=== PATIENT | male | born 1995 | race Caucasian/White ===

== ENCOUNTER 2017-07-28 02:37 | Emergency (ER) | payer SELFPAY ==
[~2017-07-28] VITALS: Ht 185.4 cm; Wt 85.0 kg
[2017-07-28 02:39] VITALS: BP 113/77; PULSE 95; RESP 16; TEMP 98.4; O2SAT 100
--- NOTE | 2017-07-28 02:43 | PD ---
HPI Chief Complaint: Pain: Acute or Chronic Time Seen by Provider: 02:42 Travel History International Travel<30 days: No Contact w/Intl Traveler<30days: No Traveled to known affect area: No History of Present Illness HPI 22-year-old male presents to emergency department by [facility] for evaluation right knee pain. Patient states that he went out evening and had been dropped off at his hotel when he was walking and he developed an acute pain in his right knee. He states he had to crawl to the pool deck at which time maintenance people became upset with him asking him to leave. He states he could not stand up so they called 911. [facility] ambulance brought the patient here to the emergency department. Patient reports 9 and 10 right knee pain, specific to the right knee with no recollection of injury. He denies any medical history. No other symptoms to report. PFSH Past Medical History Medical History: Denies Significant Hx Social History Alcohol Use: Yes Tobacco Use: Yes Substance Use: Yes Allergies-Medications (Allergen,Severity, Reaction): Coded Allergies: No Known Allergies (Unverified , 07/28/17) Reported Meds & Prescriptions Reported Meds & Active Scripts Active Ibuprofen 800 Mg Tab 800 Mg PO Q6HR PRN Review of Systems Except as stated in HPI: all other systems reviewed are Neg Physical Exam Narrative GENERAL: Well-nourished male patient, ambulatory with an antalgic gait, but in no acute distress. SKIN: Focused skin assessment warm/dry. HEAD: Atraumatic. Normocephalic. EYES: Pupils equal and round. No scleral icterus. No injection or drainage. ENT: No nasal bleeding or discharge. Mucous membranes pink and moist. NECK: Trachea midline. No JVD. CARDIOVASCULAR: Regular rate and rhythm. No murmur appreciated. RESPIRATORY: No accessory muscle use. Clear to auscultation. Breath sounds equal bilaterally. GASTROINTESTINAL: Abdomen soft, non-tender, nondistended. Hepatic and splenic margins not palpable. MUSCULOSKELETAL: No obvious deformities. No clubbing. No cyanosis. No edema. No tenderness elicited palpation over the bony structures of the right knee. Shruti's test is negative. No laxity with valgus or varus stress. No erythema or edema. Negative Homans. Distal pulses are palpable. Cap refills within normal limits. NEUROLOGICAL: Awake and alert. No obvious cranial nerve deficits. Motor grossly within normal limits. Normal speech. Data Data Last Documented VS Vital Signs Date Time Temp Pulse Resp B/P (MAP) Pulse Ox O2 Delivery O2 Flow Rate FiO2 07/28/17 02:42 14 07/28/17 02:39 98.4 95 113/77 (89) 100 Orders Orders Knee, Complete (4vws) (07/28/17 ) Ketorolac Inj (Toradol Inj) (07/28/17 03:00) ^ Knee Immobilizer (07/28/17 03:18) Crutches (07/28/17 03:18) MDM Medical Decision Making Medical Screen Exam Complete: Yes Emergency Medical Condition: Yes Medical Record Reviewed: Yes Differential Diagnosis Knee contusion versus sprain versus ligamentous injury Narrative Course 22-year-old male presents to emergency department for evaluation of right knee pain, acute onset with no recollection of injury. Physical exam is reassuring. There are no concerning findings on exam. X-ray imaging is without acute bony abnormality. Patient is provided a jones knee splint and crutches for support and comfort. Patient states he does not have a place to stay. He is offered to stay until morning, however the patient does not want to stay. He is provided a list of shelters and ambulates using the crutches out of the ED. Diagnosis Primary Impression: Right knee pain Qualified Codes: M25.561 - Pain in right knee Referrals: Orthopaedic Surgeon Primary Care Physician Patient Instructions: General Instructions, Knee Immobilizer (ED) Additional Instructions: Knee immobilizer for support Seek orthopedic evaluation Outpatient MRI may be warranted Weight-bear as tolerated Ice and elevate to reduce pain and swelling Return immediately to the emergency department with any acute worsening symptoms Med/Other Pt SpecificInfo: Prescription(s) given Scripts Ibuprofen (Ibuprofen) 800 Mg Tab 800 MG PO Q6HR Y for PAIN, #30 TAB 0 Refills Prov: Ramonita Palomares 07/28/17 Disposition: 01 DISCHARGE HOME Condition: Stable Ramonita Palomares Jul 28, 2017 02:42
[2017-07-28] MEDS ORDERED: KETOROLAC TROMETHAMINE 60 MG/2 ML (IM) VIAL IM ONE (03:00)
--- NOTE | 2017-07-28 03:16 | RADRPT ---
EXAM DATE/TIME: 07/28/2017 02:43 [facility] COMPARISON: No previous studies available for comparison. INDICATIONS : Pain began two hours ago- no known injury, unable to bear weight. MEDICAL HISTORY : None. SURGICAL HISTORY : None. ENCOUNTER: Initial ACUITY: 1 day PAIN SCORE: 8/10 LOCATION: Right Knee FINDINGS: Four view examination of the right knee demonstrates no evidence of fracture or dislocation. Bony mi neralization is normal. The articular surfaces are intact. The suprapatellar soft tissues have a no rmal configuration. CONCLUSION: Right knee radiographs are within normal limits. Robles Kahn MD on July 28, 2017 at 3:15 Board Certified Radiologist. This report was verified electronically.
[2017-07-28] MEDS ORDERED: IBUP800T23 PO (03:21)
== END 2017-07-28 03:54 | disposition home or self-care (01) ==
LOC: NEPD 02:37
DX: M25.561 Pain in right knee (principal); Z72.0 Tobacco use
CPT/HCPCS: 73564; 96372; 99284; E0113; J1885

== ENCOUNTER 2017-07-28 05:12 | Emergency (ER) | payer SELFPAY ==
[~2017-07-28] VITALS: Ht 182.9 cm; Wt 82.0 kg
[~2017-07-28 05:12] MED LIST: IBUP800T23 PO
[2017-07-28 05:15] VITALS: BP 118/70; PULSE 90; RESP 15; TEMP 98.4; O2SAT 97
--- NOTE | 2017-07-28 05:37 | PD ---
HPI Chief Complaint: Psychiatric Symptoms Time Seen by Provider: 05:30 Travel History International Travel<30 days: No Contact w/Intl Traveler<30days: No Traveled to known affect area: No History of Present Illness HPI 22-year-old male who was just seen and evaluated for right knee pain, returns to the emergency department requesting a taxi pass and threatening suicide if he does not get one. Patient was seen this morning and offered to sleep here until 6 AM when he could leave. He is provided [facility] information. He left on his own accord at that time. Patient reports a remote suicide attempt by cutting his right forearm and tells me he will do this again if he does not get a ride. PFSH Past Medical History Medical History: Denies Significant Hx Diminished Hearing: No Hepatitis: Yes (C) Past Surgical History Surgical History: No Previous Surgery Social History Alcohol Use: Yes (occ) Tobacco Use: Yes (1ppd) Substance Use: Yes Allergies-Medications (Allergen,Severity, Reaction): Coded Allergies: No Known Allergies (Unverified , 07/28/17) Reported Meds & Prescriptions Reported Meds & Active Scripts Active Ibuprofen 800 Mg Tab 800 Mg PO Q6HR PRN Review of Systems Except as stated in HPI: all other systems reviewed are Neg Physical Exam Narrative GENERAL: Well-nourished male patient, ambulatory with crutches assistance in no acute distress. HEAD: Atraumatic. Normocephalic. EYES: Pupils equal and round. Bilateral injection. No drainage. ENT: No nasal bleeding or discharge. NECK: Trachea midline. CARDIOVASCULAR: Regular rate . RESPIRATORY: No accessory muscle use MUSCULOSKELETAL: No obvious deformities. No clubbing. No cyanosis. No edema. NEUROLOGICAL: Awake and alert. No obvious cranial nerve deficits. Motor grossly within normal limits. Normal speech. Data Data Last Documented VS Vital Signs Date Time Temp Pulse Resp B/P (MAP) Pulse Ox O2 Delivery O2 Flow Rate FiO2 07/28/17 05:15 98.4 90 15 118/70 (86) 97 Room Air Orders Orders Psych Screen (07/28/17 05:30) MDM Medical Decision Making Medical Screen Exam Complete: Yes Emergency Medical Condition: Yes Medical Record Reviewed: Yes Differential Diagnosis Malingering versus manipulative behavior versus mood disorder versus personality disorder versus adjustment reaction disorder Narrative Course 22-year-old male presents to emergency department for the second time this morning, this time threatening suicide if he does not get a taxi pass. I explained the patient that he left on his own prior to sunrise because he was unwilling to wait for a bus . I also informed him buses were not running at this time. Earlier he is provided [facility] information as it appears he may be homeless. I have high suspicion of malingering based on patient's situational threats as well as a lawsuit if he does indeed follow through with his suicide. A psychiatric screen has been ordered. Diagnosis Primary Impression: Malingering Additional Impression: Adjustment reaction with aggression Referrals: Primary Care Physician Patient Instructions: General Instructions, Mood Disorders (ED) Additional Instructions: Utilize the resources she had been given to select a [facility] Follow-up with the primary care provider Return immediately with any acute worsening symptoms Med/Other Pt SpecificInfo: No Change to Meds Disposition: 01 DISCHARGE HOME Condition: Stable Ramonita Palomares Jul 28, 2017 05:37
[2017-07-28 06:28] VITALS: BP 94/43; PULSE 73; RESP 18; O2SAT 96
--- NOTE | 2017-07-28 11:35 | PD ---
History of Present Illness Chief Complaint: Psychiatric Symptoms Time Seen by Provider: 11:30 Travel History International Travel<30 Days: No Contact w/Intl Traveler<30days: No Known affected area: No Legal Status Legal Status: Voluntary History of Present Illness: History of Present Illness HPI 22-year-old male with no psychiatric history who was seen and evaluated for right knee pain earlier and left the Ed on his own accord. He returns to the emergency department requesting a taxi pass and threatening suicide if he does not get one. Patient reports a remote suicide attempt by cutting his right forearm and tells me he will do this again if he does not get a ride. Patient was maintained overnight in [place] and was monitored. he presented no behavioral concerns and no suicidality. This morning after he spoke with his uncle he is requesting to be discharged " immediately " because his uncle is here to pick him up and take him back to [place]. He is calm, engaging. Speech is clear and logical. He denies any hallucinatory process. Denies any suicidal or homicidal ideation and as stated previously is requesting to be discharged in order for him to return home with uncle. PFSH Past Medical History Medical History: Denies Significant Hx Diminished Hearing: No Hepatitis: Yes (C) Past Surgical History Surgical History: No Previous Surgery Psychiatric History Psychiatric History Hx Psychiatric Treatment: None reported. One reported sucidal attempt by cutting his wrist but dfeneis that he received psychiatric treatment. History of Inpatient Treatment: No Guns or firearms in home: No Social History Out of town. here on vacation. Hx Alcohol Use: Yes (occ) Hx Tobacco Use: Yes (1ppd) Other Substances Used: no toxicology report available Hx of Substance Use Treatment: No Family Psychiatric History Unknown Allergies-Medications (Allergen,Severity, Reaction): Coded Allergies: No Known Allergies (Unverified , 07/28/17) Reported Meds & Prescriptions Reported Meds & Active Scripts Active No Active Prescriptions or Reported Medications Review of Systems Musculoskeletal: COMPLAINS OF: Joint pain (right knee pain) Exam Alert: Yes [place]: Person (ox4) Mood: Calm Affect: Appropriate Speech: Clear, Logical Eye Contact: Normal Memory Intact: Comment (No impairment) Hallucinations: Other (Negative) Delusions: No Suicidal: Ideation (deneis any) Homicidal: Ideation (deneis any) Insight/Judgement Fair. Not impaired. MDM Medical Decision Making Medical Record Reviewed: Yes Assessment/Plan HPI 22-year-old male with no psychiatric history who was seen and evaluated for right knee pain earlier and left the Ed on his own accord. He returns to the emergency department requesting a taxi pass and threatening suicide if he does not get one. Patient reports a remote suicide attempt by cutting his right forearm and tells me he will do this again if he does not get a ride. Patient was maintained overnight in [place] and was monitored. he presented no behavioral concerns and no suicidality. This morning after he spoke with his uncle he is requesting to be discharged " immediately " because his uncle is here to pick him up and take him back to [place]. Patient clearly exhibits manipulative behavior in order to obtain secondary gains. Orders Orders Psych Screen (07/28/17 05:30) Diet Regular Basic (07/28/17 Breakfast) Diet 1800 Ada Cons Carb (07/28/17 Lunch) Results Vital Signs Date Time Temp Pulse Resp B/P (MAP) Pulse Ox O2 Delivery O2 Flow Rate FiO2 07/28/17 06:28 73 18 94/43 (60) 96 07/28/17 05:15 98.4 90 15 118/70 (86) 97 Room Air Diagnosis Primary Impression: Malingering Psychiatrically Cleared: Yes Referrals: Primary Care Physician Patient Instructions: General Instructions, Mood Disorders (ED) Additional Instructions: Utilize the resources she had been given to select a intermediate Follow-up with the primary care provider Return immediately with any acute worsening symptoms Med/ Other Pt Specific Info: No Meds Exist/No RX given Prescriptions No Active Prescriptions or Reported Meds Disposition: 01 DISCHARGE HOME Condition: Stable Bety Garnetts Amandacathy ORELLANA Jul 28, 2017 11:35
== END 2017-07-28 13:07 | disposition home or self-care (01) ==
LOC: NEPD 05:12 → NEPJ 13:07
DX: Z76.5 Malingerer [conscious simulation] (principal); F17.200 Nicotine dependence, unspecified, uncomplicated
CPT/HCPCS: 99283